=== PATIENT | female | born 1980 | race African-American/Black ===

== ENCOUNTER 2018-04-27 12:50 | Outpatient (CLI) | payer OTHER ==
--- NOTE | 2018-04-27 13:55 | RAD ---
RADIOGRAPH CHEST 2 VIEWS: HISTORY: 38-year-old female with hemoptysis. FINDINGS: There is no air space density, pulmonary edema, pleural effusion, pneumothorax, or cardiomegaly. IMPRESSION: No acute cardiopulmonary findings. betty POS: JEFF
== END 2018-04-27 12:51 | disposition home or self-care (01) ==
LOC: BICRAD 12:50
PROVIDERS: ATTEND Family Medicine
DX: R04.2 Hemoptysis (principal)
CPT/HCPCS: 71046

== ENCOUNTER 2018-10-01 15:08 | Outpatient (CLI) | payer OTHER ==
--- NOTE | 2018-10-01 16:10 | MMO ---
Bilateral MAMMO Bilat Diag [facility]. CLINICAL HISTORY: Patient is 38 years old and is seen for diagnostic exam. The patient has the following family history of breast cancer: sister, at age 54; maternal aunt, at age 38; maternal grandmother, at age 61 and cousin female, at age 32. The patient has no personal history of cancer. The patient has a history of left Lumpectomy in 1995 - benign. VIEWS: The views performed were: bilateral craniocaudal with tomosynthesis; bilateral mediolateral oblique with tomosynthesis; and bilateral mediolateral. FILMS COMPARED: The present examination has been compared to a prior imaging study performed at [facility] on 10/01/2018. MAMMOGRAM FINDINGS: There are scattered fibroglandular densities. Finding 1: There are calcifications with grouped or clustered distribution seen in the upper-outer region of the left breast. Finding 2: There are stable benign appearing calcifications seen in both breasts. There are no mammographic or sonographic abnormalities in the area of palpable concern. The patient is referred back to her clinician. Negative imaging findings should not preclude biopsy if clinical findings are suspicious. IMPRESSION: FINDING 1: CALCIFICATIONS IN THE LEFT BREAST ARE SUSPICIOUS. A STEREOTACTIC BREAST BIOPSY IS RECOMMENDED. RESULTS AND RECOMMENDATIONS DISCUSSED WITH THE PATIENT AND QUESTIONS ANSWERED. FINDING 2: THERE ARE NO MAMMOGRAPHIC OR SONOGRAPHIC ABNORMALITIES IN THE AREA OF PALPABLE CONCERN. THE PATIENT IS REFERRED BACK TO HER CLINICIAN. NEGATIVE IMAGING FINDINGS SHOULD NOT PRECLUDE BIOPSY IF CLINICAL FINDINGS ARE SUSPICIOUS. THE RESULTS OF THIS EXAM WERE SENT TO THE PATIENT. ACR BI-RADS Category 4 - Suspicious abnormality - biopsy should be considered MAMMOGRAPHY NOTE: 1. A negative mammogram report should not delay a biopsy if a dominant of clinically suspicious mass is present. 2. Approximately 10% to 15% of breast cancers are not detected by mammography. 3. Adenosis and dense breasts may obscure an underlying neoplasm.
--- NOTE | 2018-10-01 16:24 | ULT ---
LIMITED RIGHT BREAST ULTRASOUND 10/01/18 PROVIDED CLINICAL HISTORY: Right breast palpable abnormality and pain. FINDINGS: Limited sonographic interrogation is performed of the right breast in the region of palpable concern and patient pain. The sonographic appearance of the right breast in this region is normal. IMPRESSION: 1. No sonographic abnormality is evident to the region of patient complaint. Negative imaging fi ndings should not preclude further evaluation of a clinically suspicious finding. The patient is refe rred back to her clinician. BIRADS 1: Negative 2. Please see concurrently dictated diagnostic mammogram for findings requiring biopsy seen mamm ographically in the left breast. POS: OFF
== END 2018-10-01 15:09 | disposition home or self-care (01) ==
LOC: BICMAMMO 15:08
PROVIDERS: ATTEND Family Medicine
DX: N63.10 Unspecified lump in the right breast, unspecified quadrant (principal); Z80.3 Family history of malignant neoplasm of breast; Z98.890 Other specified postprocedural states
CPT/HCPCS: 77066; G0279

== ENCOUNTER → 2018-10-07 | Day surgery (SDC) | payer OTHER ==
--- NOTE | 2018-10-07 09:08 | MMO ---
EXAM: MAMMO Brst Bx Stereo left breast Left breast biopsy marker clip placement PROVIDED CLINICAL HISTORY: Microcalcifications upper outer left breast COMPARISON: Mammograms on 10/01/2018 TECHNIQUE: The procedure including risks and complications were explained to the patient, and informed consent w as obtained. Patient was placed on the stereotactic guided breast biopsy table in the supine position. Microcalcifications in the upper outer left breast were localized utilizing stereotactic gu idance. 10-gauge stereotactic biopsy needle was advanced followed by 30 degree mammographic projections. The needle was then further advanced, and a total of 6 core needle biopsy specimens were obtained. However, only a few microcalcifications were noted in the specimen. As a result, the microcalcifications were re-localized utilizing stereotactic guidance, and additional biopsies were p erformed. A total of approximately 15 core needle biopsy specimens were obtained. Specimen mammogram demonstrated microcalcifications within the specimen. A biopsy marker clip was placed at site of biopsy. Needle was removed, and hemostasis was achieved wi th direct pressure. A dry sterile dressing was placed. The patient tolerated the procedure well and without immediate complication. CC and MLO views left breast were obtained demonstrating biopsy marke r clip in the region of microcalcifications in the upper outer left breast, and the majority of the previously seen microcalcifications are not visualized. IMPRESSION: 1. Technically successful stereotactic guided biopsy of left breast microcalcifications. 2. Technically successful biopsy marker clip at site of biopsy in region of left breast microcalcific ations.
--- NOTE | 2018-10-07 09:20 | MMO ---
EXAM: MAMMO Surgial Specimen of left breast PROVIDED CLINICAL HISTORY: Left breast microcalcifications located in the upper outer left breast. COMPARISON: Mammogram on 10/01/2018 FINDINGS: Provided specimen mammograms demonstrates multiple core specimens with multiple microcalcifications s een in specimens on the provided specimen mammograms. IMPRESSION: Specimen mammogram demonstrating microcalcifications within the provided specimens.
--- NOTE | 2018-10-07 09:57 | MMO ---
Left Breast MAMMO Unilat Diag [facility]. CLINICAL HISTORY: Patient is 38 years old and is seen for diagnostic exam. The patient has the following family history of breast cancer: sister, at age 54; maternal aunt, at age 38; maternal grandmother, at age 61 and cousin female, at age 32. The patient has no personal history of cancer. The patient has a history of left Lumpectomy in 1995 - benign. VIEWS: The views performed were: left craniocaudal and left mediolateral oblique. FILMS COMPARED: The present examination has been compared to a prior imaging study performed at [facility] on 10/01/2018. MAMMOGRAM FINDINGS: Biopsy clip is appropriate in position. IMPRESSION: FINDING IN THE LEFT BREAST IS CONFIRMED UTILIZING POST PROCEDURE MAMMOGRAM. THE RESULTS OF THIS EXAM WERE SENT TO THE PATIENT. MAMMOGRAPHY NOTE: 1. A negative mammogram report should not delay a biopsy if a dominant of clinically suspicious mass is present. 2. Approximately 10% to 15% of breast cancers are not detected by mammography. 3. Adenosis and dense breasts may obscure an underlying neoplasm.
== END ==
LOC: MAMMO 06:49
PROVIDERS: ATTEND Family Medicine
PROC: 0HBU3ZX Excision of Left Breast, Percutaneous Approach, Diagnostic (ICD-10-PCS; principal; 2018-10-07)
DX: C50.412 Malignant neoplasm of upper-outer quadrant of left female breast (principal)
CPT/HCPCS: 19081; 76098; 88305; 88341; 88342; 88360